=== PATIENT | male | born 1980 | race Caucasian/White ===

== ENCOUNTER 2016-10-01 15:59 | Emergency (ER) | payer OTHER ==
--- NOTE | 2016-10-01 17:15 | ED CLINICAL REPORT ---
Clinical Report - Physicians/Mid Levels [facility] [address] [place] [address] 10/01/2016 16:00 Patient: SPARKLE JOEL Time Seen: 16:11; initial patient contact, initial documentation, patient care assumed. Arrived- By private vehicle. Historian- patient and significant other. HISTORY OF PRESENT ILLNESS Chief Complaint: Injury to the right foot and great toe and right 2nd toe. The injury happened just prior to arrival. 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 Occurred at home. Patient is experiencing severe pain. Patient denies injury to the head or neck. No other injury. REVIEW OF SYSTEMS The patient sustained a laceration. He complains of pain on weight bearing. No swelling, tingling, weakness or numbness. All systems otherwise negative, except as recorded above. PAST HISTORY See nurses notes. SURGERY HX: Appendectomy. Back surgery. Discectomy; fusion at L5-S1. Tetanus immunization status is unknown. SOCIAL HISTORY Never smoker. Occasional alcohol use. No drug use. No recent travel. Is a local resident. He lives with spouse. FAMILY HISTORY No significant family medical history. ADDITIONAL NOTES The nursing notes have been reviewed with agreement regarding the chief complaint, HPI, ROS and patient medications and allergies. PHYSICAL EXAM Vital Signs: 10/01/2016 16:07 BP: 137/101. HR: 68. RR: 20. O2 saturation: 99%. Temp: 98.2 F. Pain level now: 9/10. Have been reviewed as abnormal. Hypertensive. Heart rate normal. Respiratory rate normal. Temperature normal. Oxygen saturation normal. Appearance: Alert. Oriented X3. No acute distress. Head: Head atraumatic. Eyes: Pupils equal, round and reactive to light. Eyes normal inspection. Respiratory: No respiratory distress. Skin: Skin intact. Skin warm and dry. Extremities: Foot injury present. Tip of right great toe: moderate tenderness small subungual hematoma present; (very small hematoma, approx 10% of nail). No erythema, swelling, laceration of tip of right great toe, puncture wound or foreign body. No right great toenail avulsion or toe tip amputation, exposed bone of right great toe or loss of the nail bed of right great toe. Tip of right second toe: mild tenderness and superficial laceration; (dried blood at base of cuticle, no active bleeding, no closure needed). No erythema, swelling, puncture wound or foreign body. No subungual hematoma of right second toe, right second toenail avulsion or toe tip amputation, exposed bone of right second toe or loss of the nail bed of right second toe. No ankle injury. Foot and ankle exam otherwise negative. Extremities otherwise negative. Neuro, Vascular and Tendons: Vascular status intact. Sensation intact. Motor intact. Tendon function intact. Gait: Abnormal gait. Gait not tested due to pain. Neuro: Oriented X 3. No motor deficit. No sensory deficit. Note: isolated injury to foot. LABS, X-RAYS, AND EKG X-Rays: Right foot. Rt Foot X-ray: Right toe(s) fracture. Fracture involving the distal phalanx of the first toe. Fracture involving the distal phalanx of the second toe. No open, angulated or displaced fracture of the first toe. No open, angulated or displaced fracture of the second toe. (and reviewed by Dr Hall IMPRESSION: 1. Fractures of the right first, second and third toes. Electronically Final signed by:Bolivar Harris MD 10/01/2016 5:42:57 PM). The X-rays were independently viewed by me and interpreted by the radiologist. PROGRESS AND PROCEDURES Course of Care: concerns voiced over possible microscopic fb, sock, shoes, grass, and infection risk, agreed to do abx 17:18 10/01/16. pt has lindsay for frequent narcs, last rx 09/28 for hydrocodone 7.5mg #60 and valium 2mg #30, see report for full details. Patient and spouse counseled in person regarding the patient's stable condition, test results and diagnosis. Differential Diagnosis: Other possible considerations: toe amputation, fx, lac, contusion, fb. Above considerations are based on history, physical exam and X-Ray data. Differential diagnosis was discussed with patient and patient's spouse. Disposition: Discharged home in good and improved condition. Condition: good and stable. CLINICAL IMPRESSION Closed nondisplaced distal phalanx fracture of the right 1st toe; distal phalanx fracture of the right 2nd toe. No angulated fracture of the phalanx. Single superficial laceration to the right 2nd toe.Treatment of laceration not delayed. No infection, foreign body present or right toenail injury. Subungual hematoma of the right great toe. No damage to the nail, foreign body present or laceration present. INSTRUCTIONS Apply ice for 20 minutes four times a day for two days. Mauro tape toes until released. Protect wound and keep wound area clean. Soak in warm soapy water twice daily. Apply bacitracin twice daily. Elevate affected areas above chest level for two days until better. Wear post-op shoe until better. Warnings: TETANUS: You were given a tetanus shot during your visit. Make a note for future reference. GENERAL WARNINGS: Return or contact your physician immediately if your condition worsens or changes unexpectedly, if not improving as expected, or if other problems arise. Specifically return if problem worsens. Prescription Medications: Zofran 4 mg: Take 1 orally every six hours as needed for nausea/vomiting. Dispense ten (10). No refills. Substitution is permissible. Cipro 500 mg: take 1 tab orally every 12 hours for 10 days. Dispense twenty (20). No refills. Substitution is permissible. Celoron 5 mg / 325 mg tablets: take 1 to 2 orally every 6 hours as needed for pain. Dispense fifteen (15). No refills. Substitution is permissible. Motrin 800 mg tablets: take 1 tablet orally every 8 hours as needed for pain. Dispense thirty (30). No refills. Substitution is permissible. Follow-up: Screening today revealed the patient's blood pressure to be in the hypertensive range. The patient should follow up with a primary care provider for blood pressure management. Understanding of the discharge instructions verbalized by patient. Follow-up with: Marquise Adams DPM, Podiatry, , [facility], [address] [place] [address], [address], [place] [address]; Sunny Oneal DPM, Podiatry, [phone], [address] [facility]. [address], [place], [address] Follow up in about two days even if well. Call for an appointment. Summary of care provided to patient and family. (Electronically signed by Mila Hobbs A.R.N.P. 10/01/2016 17:48) Addenda for SPARKLE JOEL VisitID: [id number] Date: 10/01/2016 10/01/2016 18:01 pharmacy called, verifying my rx of norco, because pt just got 30 day supply of pain meds, rx denied (Electronically signed by Mila HobbsN.P. - 10/01/2016 18:01)
--- NOTE | 2016-10-01 17:15 | ED CLINICAL REPORT ---
Clinical Report - Physicians/Mid Levels [facility] [address] [place] [address] 10/01/2016 16:00 Patient: SPARKLE JOEL Time Seen: 16:11; initial patient contact, initial documentation, patient care assumed. Arrived- By private vehicle. Historian- patient and significant other. HISTORY OF PRESENT ILLNESS Chief Complaint: Injury to the right foot and great toe and right 2nd toe. The injury happened just prior to arrival. 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 Occurred at home. Patient is experiencing severe pain. Patient denies injury to the head or neck. No other injury. REVIEW OF SYSTEMS The patient sustained a laceration. He complains of pain on weight bearing. No swelling, tingling, weakness or numbness. All systems otherwise negative, except as recorded above. PAST HISTORY See nurses notes. SURGERY HX: Appendectomy. Back surgery. Discectomy; fusion at L5-S1. Tetanus immunization status is unknown. SOCIAL HISTORY Never smoker. Occasional alcohol use. No drug use. No recent travel. Is a local resident. He lives with spouse. FAMILY HISTORY No significant family medical history. ADDITIONAL NOTES The nursing notes have been reviewed with agreement regarding the chief complaint, HPI, ROS and patient medications and allergies. PHYSICAL EXAM Vital Signs: 10/01/2016 16:07 BP: 137/101. HR: 68. RR: 20. O2 saturation: 99%. Temp: 98.2 F. Pain level now: 9/10. Have been reviewed as abnormal. Hypertensive. Heart rate normal. Respiratory rate normal. Temperature normal. Oxygen saturation normal. Appearance: Alert. Oriented X3. No acute distress. Head: Head atraumatic. Eyes: Pupils equal, round and reactive to light. Eyes normal inspection. Respiratory: No respiratory distress. Skin: Skin intact. Skin warm and dry. Extremities: Foot injury present. Tip of right great toe: moderate tenderness small subungual hematoma present; (very small hematoma, approx 10% of nail). No erythema, swelling, laceration of tip of right great toe, puncture wound or foreign body. No right great toenail avulsion or toe tip amputation, exposed bone of right great toe or loss of the nail bed of right great toe. Tip of right second toe: mild tenderness and superficial laceration; (dried blood at base of cuticle, no active bleeding, no closure needed). No erythema, swelling, puncture wound or foreign body. No subungual hematoma of right second toe, right second toenail avulsion or toe tip amputation, exposed bone of right second toe or loss of the nail bed of right second toe. No ankle injury. Foot and ankle exam otherwise negative. Extremities otherwise negative. Neuro, Vascular and Tendons: Vascular status intact. Sensation intact. Motor intact. Tendon function intact. Gait: Abnormal gait. Gait not tested due to pain. Neuro: Oriented X 3. No motor deficit. No sensory deficit. Note: isolated injury to foot. LABS, X-RAYS, AND EKG X-Rays: Right foot. Rt Foot X-ray: Right toe(s) fracture. Fracture involving the distal phalanx of the first toe. Fracture involving the distal phalanx of the second toe. No open, angulated or displaced fracture of the first toe. No open, angulated or displaced fracture of the second toe. (and reviewed by Dr Hall IMPRESSION: 1. Fractures of the right first, second and third toes. Electronically Final signed by:Bolivar Harris MD 10/01/2016 5:42:57 PM). The X-rays were independently viewed by me and interpreted by the radiologist. PROGRESS AND PROCEDURES Course of Care: concerns voiced over possible microscopic fb, sock, shoes, grass, and infection risk, agreed to do abx 17:18 10/01/16. pt has lindsay for frequent narcs, last rx 09/28 for hydrocodone 7.5mg #60 and valium 2mg #30, see report for full details. Patient and spouse counseled in person regarding the patient's stable condition, test results and diagnosis. Differential Diagnosis: Other possible considerations: toe amputation, fx, lac, contusion, fb. Above considerations are based on history, physical exam and X-Ray data. Differential diagnosis was discussed with patient and patient's spouse. Disposition: Discharged home in good and improved condition. Condition: good and stable. CLINICAL IMPRESSION Closed nondisplaced distal phalanx fracture of the right 1st toe; distal phalanx fracture of the right 2nd toe. No angulated fracture of the phalanx. Single superficial laceration to the right 2nd toe.Treatment of laceration not delayed. No infection, foreign body present or right toenail injury. Subungual hematoma of the right great toe. No damage to the nail, foreign body present or laceration present. INSTRUCTIONS Apply ice for 20 minutes four times a day for two days. Mauro tape toes until released. Protect wound and keep wound area clean. Soak in warm soapy water twice daily. Apply bacitracin twice daily. Elevate affected areas above chest level for two days until better. Wear post-op shoe until better. Warnings: TETANUS: You were given a tetanus shot during your visit. Make a note for future reference. GENERAL WARNINGS: Return or contact your physician immediately if your condition worsens or changes unexpectedly, if not improving as expected, or if other problems arise. Specifically return if problem worsens. Prescription Medications: Zofran 4 mg: Take 1 orally every six hours as needed for nausea/vomiting. Dispense ten (10). No refills. Substitution is permissible. Cipro 500 mg: take 1 tab orally every 12 hours for 10 days. Dispense twenty (20). No refills. Substitution is permissible. [place] 5 mg / 325 mg tablets: take 1 to 2 orally every 6 hours as needed for pain. Dispense fifteen (15). No refills. Substitution is permissible. Motrin 800 mg tablets: take 1 tablet orally every 8 hours as needed for pain. Dispense thirty (30). No refills. Substitution is permissible. Follow-up: Screening today revealed the patient's blood pressure to be in the hypertensive range. The patient should follow up with a primary care provider for blood pressure management. Understanding of the discharge instructions verbalized by patient. Follow-up with: Marquise Adams DPM, Podiatry, , [facility], [address] [place] [address], [address], [place] [address]; Sunny Oneal DPM, Podiatry, [phone], [address] [facility], [place], [address] Follow up in about two days even if well. Call for an appointment. Summary of care provided to patient and family. (Electronically signed by Mila Hobbs A.R.N.P. 10/01/2016 17:48) Addenda for SPARKLE JOEL VisitID: [id number] Date: 10/01/2016 10/01/2016 18:01 pharmacy called, verifying my rx of norco, because pt just got 30 day supply of pain meds, rx denied (Electronically signed by Mila HobbsN.P. - 10/01/2016 18:01)
--- NOTE | 2016-10-01 17:15 | ED ORDER SUMMARY ---
..... Patient: SPARKLE JOEL OrderSheet [facility] VisitID: [id number] [place] [address] 36y, M Registration Date/Time: 10/01/2016 ORDER SHEET Weight: 74.8 kg (stated) Allergies: No Known Drug Allergy GENERAL ORDERS: Foot 3V Right Urgent (16:06 10/01/2016 DDean R.N. per protocol) (Ack 16:10 TBergley) (16:57 DDean R.N.) Post-op Shoe (16:29 10/01/2016 HBivens A.R.N.P.) (16:56 DDean R.N.) Mauro Tape Toes (16:29 10/01/2016 HBivens A.R.N.P.) (16:57 DDean R.N.) MEDICATION ORDERS: Hydrocodone-APAP PO 5/325 mg (NOW, HIGH ALERT MEDICATION) (16:29 10/01/2016 HBivens A.R.N.P.) (Ack 16:49 DDean R.N.) (Cancelled: Other16:52 HBivens A.R.N.P.) Tdap IM 0.5 mL (NOW, per protocol) (16:37 10/01/2016 HBivens A.R.N.P.) (Ack 16:49 DDean R.N.) (16:52 DDean R.N.) Oxycodone-APAP PO 5/325 mg (HIGH ALERT MEDICATION, NOW) (16:52 10/01/2016 HBivens A.R.N.P.) (Ack 16:53 DDean R.N.) IV FLUIDS: ORDER SHEET NOTES: [Electronically signed by Mila Hobbs.R.N.P. (17:48 10/01/2016)] [Electronically signed by Ester Ramos R.N. (18:19 10/01/2016)] [Electronically locked/signed by Ester Ramos R.N. (18:19 10/01/2016)]
--- NOTE | 2016-10-01 17:15 | ED ORDER SUMMARY ---
..... Patient: SPARKLE JOEL OrderSheet [facility] VisitID: [id number] [place] [address] 36y, M Registration Date/Time: 10/01/2016 ORDER SHEET Weight: 74.8 kg (stated) Allergies: No Known Drug Allergy GENERAL ORDERS: Foot 3V Right Urgent (16:06 10/01/2016 DDean R.N. per protocol) (Ack 16:10 TBergley) (16:57 DDean R.N.) Post-op Shoe (16:29 10/01/2016 HBivens A.R.N.P.) (16:56 DDean R.N.) Mauro Tape Toes (16:29 10/01/2016 HBivens A.R.N.P.) (16:57 DDean R.N.) MEDICATION ORDERS: Hydrocodone-APAP PO 5/325 mg (NOW, HIGH ALERT MEDICATION) (16:29 10/01/2016 HBivens A.R.N.P.) (Ack 16:49 DDean R.N.) (Cancelled: Other16:52 HBivens A.R.N.P.) Tdap IM 0.5 mL (NOW, per protocol) (16:37 10/01/2016 HBivens A.R.N.P.) (Ack 16:49 DDean R.N.) (16:52 DDean R.N.) Oxycodone-APAP PO 5/325 mg (HIGH ALERT MEDICATION, NOW) (16:52 10/01/2016 HBivens A.R.N.P.) (Ack 16:53 DDean R.N.) IV FLUIDS: ORDER SHEET NOTES: [Electronically signed by Mila Hobbs.R.N.P. (17:48 10/01/2016)] [Electronically signed by Ester Ramos R.N. (18:19 10/01/2016)] [Electronically locked/signed by Ester Ramos R.N. (18:19 10/01/2016)]
--- NOTE | 2016-10-01 17:15 | ED NURSING NOTES ---
Clinical Report - Nurses [facility] [address] [place] [address] 10/01/2016 16:00 Patient: SPARKLE JOEL TRIAGE Triage time 1610. Acuity: LEVEL 3. 16:10. ( last ate 1200- sandwich, last liquids water- 2 oz water at 1600). --16:12 Ester Ramos R.N. 16:07 10/01/16. BP: 137/101. HR: 68. RR: 20. O2 saturation: 99%. Temp: 98.2 F. Pain level now: 02/26. --16:12 Ester Ramos R.N. Weight: 74.8 kg stated. Height/Length: 67 inches Per Patient. BMI: 25.9. --16:09 Ester Ramos R.N. Medications Hydrocodone-Acetaminophen Oral 5 mg, daily (every 2nd or 3rd day due to back pain- had surgery in march 2016). --16:08 Ester Ramos R.N. Had a vicodin at 1545 . --16:18 Ester Ramos R.N. Allergies No Known Drug Allergy. --16:08 Ester Ramos R.N. History Arrived by private vehicle. Historian: patient. Accompanied by spouse. Primary physician (shannan/ nelson). 16:10 10/01/16. This occurred just prior to arrival. 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 He has had trouble walking. SURGERY HX: Appendectomy. Back surgery. Discectomy; fusion at L5-S1. SOCIAL HX: Never smoker. Occasional alcohol use. No drug use. --16:12 Ester Ramos R.N. Interventions ID band on patient. To treatment room. --16:12 Ester Ramos R.N. PHYSICAL ASSESSMENT 16:10. Ambulatory to room. Patient gowned. GENERAL / NEURO / PSYCH: Oriented X 4. Does not appear in pain. EXTREMITIES: Limited ROM present. Capillary refill is less than 2 seconds in the extremities. Extremity pulses are within normal limits. Pain with weight bearing. Limping gait. Right foot, plantar aspect: tenderness and swelling. Right big toe: tenderness and swelling. Right second toe: tenderness, swelling, ecchymosis and abrasion. SKIN: Skin is warm and dry. --16:14 Ester Ramos R.N. NURSING PROGRESS NOTES 16:10. Cold pack applied. Reassurance given. Patient identifiers checked. Call light placed in reach. Side rails up. Bed placed in lowest position. Patient ready for evaluation- chart flagged. --16:13 Ester Ramos R.N. 16:17 10/01/16. ( port x-ray here to do foot films). --16:17 Ester Ramos R.N. 16:52 10/01/2016 TDAP IM. (Lot#: [id number], expiration date: 03/26/2018). Given in the left deltoid. --16:52 Ester Ramos R.N. 16:52 10/01/2016 Oxycodone-APAP (Oxycodone-Acetaminophen) PO 5/325 mg Tablets 1 tab given. Allergies verified and confirmed 5 rights. --16:57 Ester Ramos R.N. 17:15. Applied clean dressing consisting of Band-Aid, following the application of antibiotic ointment (kimo tape done to 1st and 2nd great toe by rail technician, then post op shoe applied by Meredith Merritt mending carrier). --18:13 Ester Ramos R.N. DISPOSITION / DISCHARGE 17:25. Condition at departure: improved and stable. No learning barriers present. Discharge instructions provided and reviewed with the patient and spouse. Reviewed medication(s) (zofran, cipro, vicodin, motrin). Reviewed wound care instructions (kimo tape, post-op boot). Patient and spouse verbalized understanding. Written instructions provided in Maori. The patient was discharged home and accompanied by spouse. He left the Emergency Department in a wheelchair and via private vehicle. Spouse driving. --18:11 Ester Ramos R.N. 17:25 10/01/16. BP: 128/82. HR: 64. RR: 18. O2 saturation: 100%. Temp: deferred. Pain level now: 02/26. --18:11 Ester Ramos R.N. Locked/Released at 10/01/2016 18:19 by Ester Ramos R.N.
--- NOTE | 2016-10-01 17:15 | ED NURSING NOTES ---
Clinical Report - Nurses [facility] [address] [place] [address] 10/01/2016 16:00 Patient: SPARKLE JOEL TRIAGE Triage time 1610. Acuity: LEVEL 3. 16:10. ( last ate 1200- sandwich, last liquids water- 2 oz water at 1600). --16:12 Ester Ramos R.N. 16:07 10/01/16. BP: 137/101. HR: 68. RR: 20. O2 saturation: 99%. Temp: 98.2 F. Pain level now: 02/26. --16:12 Ester Ramos R.N. Weight: 74.8 kg stated. Height/Length: 67 inches Per Patient. BMI: 25.9. --16:09 Ester Ramos R.N. Medications Hydrocodone-Acetaminophen Oral 5 mg, daily (every 2nd or 3rd day due to back pain- had surgery in march 2016). --16:08 Ester Ramos R.N. Had a vicodin at 1545 . --16:18 Ester Ramos R.N. Allergies No Known Drug Allergy. --16:08 Ester Ramos R.N. History Arrived by private vehicle. Historian: patient. Accompanied by spouse. Primary physician (shannan/ nelson). 16:10 10/01/16. This occurred just prior to arrival. 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 He has had trouble walking. SURGERY HX: Appendectomy. Back surgery. Discectomy; fusion at L5-S1. SOCIAL HX: Never smoker. Occasional alcohol use. No drug use. --16:12 Ester Ramos R.N. Interventions ID band on patient. To treatment room. --16:12 Ester Ramos R.N. PHYSICAL ASSESSMENT 16:10. Ambulatory to room. Patient gowned. GENERAL / NEURO / PSYCH: Oriented X 4. Does not appear in pain. EXTREMITIES: Limited ROM present. Capillary refill is less than 2 seconds in the extremities. Extremity pulses are within normal limits. Pain with weight bearing. Limping gait. Right foot, plantar aspect: tenderness and swelling. Right big toe: tenderness and swelling. Right second toe: tenderness, swelling, ecchymosis and abrasion. SKIN: Skin is warm and dry. --16:14 Ester Ramos R.N. NURSING PROGRESS NOTES 16:10. Cold pack applied. Reassurance given. Patient identifiers checked. Call light placed in reach. Side rails up. Bed placed in lowest position. Patient ready for evaluation- chart flagged. --16:13 Ester Ramos R.N. 16:17 10/01/16. ( port x-ray here to do foot films). --16:17 Ester Ramos R.N. 16:52 10/01/2016 TDAP IM. (Lot#: [id number], expiration date: 03/26/2018). Given in the left deltoid. --16:52 Ester Ramos R.N. 16:52 10/01/2016 Oxycodone-APAP (Oxycodone-Acetaminophen) PO 5/325 mg Tablets 1 tab given. Allergies verified and confirmed 5 rights. --16:57 Ester Ramos R.N. 17:15. Applied clean dressing consisting of Band-Aid, following the application of antibiotic ointment (kimo tape done to 1st and 2nd great toe by lawn and garden technician, then post op shoe applied by Meredith Merritt health care recruiter). --18:13 Ester Ramos R.N. DISPOSITION / DISCHARGE 17:25. Condition at departure: improved and stable. No learning barriers present. Discharge instructions provided and reviewed with the patient and spouse. Reviewed medication(s) (zofran, cipro, vicodin, motrin). Reviewed wound care instructions (kimo tape, post-op boot). Patient and spouse verbalized understanding. Written instructions provided in Sinhala. The patient was discharged home and accompanied by spouse. He left the Emergency Department in a wheelchair and via private vehicle. Spouse driving. --18:11 Ester Ramos R.N. 17:25 10/01/16. BP: 128/82. HR: 64. RR: 18. O2 saturation: 100%. Temp: deferred. Pain level now: 02/26. --18:11 Ester Ramos R.N. Locked/Released at 10/01/2016 18:19 by Ester Ramos R.N.
--- NOTE | 2016-10-01 17:43 | DIAGNOSTIC IMAGING REPORT ---
PROCEDURE: XR FOOT 3 VIEWS - RIGHT INDICATION: TRAUMA/INJURY TECHNIQUE: Three views. COMPARISON: None. FINDINGS: Minimally displaced intra-articular fracture of the right great toe distal phalanx base laterally and nondisplaced fracture of the second toe distal phalanx. There is also a nondisplaced transverse fracture at the base of the third proximal phalanx. No radiopaque foreign bodies. IMPRESSION: 1. Fractures of the right first, second and third toes.
--- NOTE | 2016-10-01 18:19 | ED MAR SUMMARY ---
..... Medication Administration Record [facility] [address] [place] [address] Patient: SPARKLE JOEL Visit ID: [id number] 36y, M Weight: 74.8 kg Height/Length: 67 in BMI: 25.9 ALLERGIES: No Known Drug Allergy Given 16:10/01/2016 Ester Ramos RChaddN. Medication Administered: TDAP [IM], Dose: IM. Medication Ordered: Tdap IM 0.5 mL (NOW, per protocol). Given 16:10/01/2016 Ester Ramos, R.N. Medication Administered: OXYCODONE-APAP [PO] (OXYCODONE-ACETAMINOPHEN), Dose: 1 tab 5/325 mg Tablets PO. Medication Ordered: Oxycodone-APAP PO 5/325 mg (HIGH ALERT MEDICATION, NOW).
--- NOTE | 2016-10-01 18:19 | ED MED RECONCILIATION SUMMARY ---
Patient: SPARKLE JOEL Medication Reconciliation Report [facility] VisitID: [id number] [place] [address] 36y, M Registration Date/Time: 10/01/2016 Weight: 74.8 kg Height/Length: 67 in. BMI: 25.9 ALLERGIES: No Known Drug Allergy The patient's Home Medications are listed below: THE FOLLOWING MEDICATIONS NEED TO BE RECONCILED: Had a vicodin at 1545 Hydrocodone-Acetaminophen Oral 5 mg, daily, every 2nd or 3rd day due to back pain- had surgery in march 2016 The source(s) of the original Home Medication information: Not obtained. The following Medications were given to the patient in the Emergency Department: TDAP [IM] IM, administered: 10/01/2016 4:52:00 PM Oxycodone-APAP [PO] PO 1 tab, administered: 10/01/2016 4:52:00 PM The following Medications were prescribed to the patient: Zofran 4 mg: Take 1 orally every six hours as needed for nausea/vomiting. Dispense ten (10). No refills. Substitution is permissible. -- Mila Hobbs, A.R.N.P. Cipro 500 mg: take 1 tab orally every 12 hours for 10 days. Dispense twenty (20). No refills. Substitution is permissible. -- Mila Hobbs, A.R.N.P. Bassett 5 mg / 325 mg tablets: take 1 to 2 orally every 6 hours as needed for pain. Dispense fifteen (15). No refills. Substitution is permissible. -- Mila Hobbs, A.R.N.P. Motrin 800 mg tablets: take 1 tablet orally every 8 hours as needed for pain. Dispense thirty (30). No refills. Substitution is permissible. -- Mila Hobbs, A.R.N.P.
--- NOTE | 2016-10-01 18:19 | ED DISCHARGE INSTRUCTIONS ---
Patient: SPARKLE JOEL General Instructions [facility] VisitID: [id number] [place] [address] 36y, M Registration Date/Time: 10/01/2016 Closed nondisplaced distal phalanx fracture of the right 1st toe; distal phalanx fracture of the right 2nd toe. No angulated fracture of the phalanx. Single superficial laceration to the right 2nd toe.Treatment of laceration not delayed. No infection, foreign body present or right toenail injury. Subungual hematoma of the right great toe. No damage to the nail, foreign body present or laceration present. INSTRUCTIONS Apply ice for 20 minutes four times a day for two days. Kimo tape toes until released. Protect wound and keep wound area clean. Soak in warm soapy water twice daily. Apply bacitracin twice daily. Elevate affected areas above chest level for two days until better. Wear post-op shoe until better. Warnings: TETANUS: You were given a tetanus shot during your visit. Make a note for future reference. GENERAL WARNINGS: Return or contact your physician immediately if your condition worsens or changes unexpectedly, if not improving as expected, or if other problems arise. Specifically return if problem worsens. Prescription Medications: Zofran 4 mg: Take 1 orally every six hours as needed for nausea/vomiting. Dispense ten (10). No refills. Substitution is permissible. Cipro 500 mg: take 1 tab orally every 12 hours for 10 days. Dispense twenty (20). No refills. Substitution is permissible. Drumore 5 mg / 325 mg tablets: take 1 to 2 orally every 6 hours as needed for pain. Dispense fifteen (15). No refills. Substitution is permissible. Motrin 800 mg tablets: take 1 tablet orally every 8 hours as needed for pain. Dispense thirty (30). No refills. Substitution is permissible. Follow-up: Screening today revealed the patient's blood pressure to be in the hypertensive range. The patient should follow up with a primary care provider for blood pressure management. Understanding of the discharge instructions verbalized by patient. Follow-up with: Marquise Adams DPM, Podiatry, , [facility], [address] [place] [address], [address], [place], [address]; Sunny Kimmy [facility], Podiatry, , [address], [place], [address] Follow up in about two days even if well. Call for an appointment. Summary of care provided to patient and family. ADDITIONAL INFORMATION Laceration (All Closures) Alaceration is a cut through the skin. This will usually require stitches (sutures) or cecilia if it is deep. Minor cuts may be treated with a surgical tape closure orskin glue. Home care The following guidelines will help you care for your laceration at home: Extremity, face, or trunk wounds Keep the wound clean and dry. If a bandage was applied and it becomes wet or dirty, replace it. Otherwise, leave it in place for the first 24 hours. If stitches or cecilia were used, clean the wound daily. After removing the bandage, wash the area with soap and water. Use a wet cotton swab to loosen and remove any blood or crust that forms. The doctor may prescribe an antibiotic cream or ointment to prevent infection. Do not stop taking this medication until you have finished the prescribed course or the doctor tells you to stop. The doctor may also prescribe medications for pain. Follow the doctors instructions for taking these medications. You may remove the bandage to shower as usual after the first 24 hours, but do not soak the area in water (no swimming) until the stitches or cecilia are removed. If surgical tape was used, keep the area clean and dry. If it becomes wet, blot it dry with a towel. If skin glue was used, do not scratch, rub, or pick at the adhesive film. Do not place tape directly over the film. Do not apply liquid, ointment, or creams to the wound while the film is in place. Do not clean the wound with peroxide and do not apply ointments. Avoid activities that cause heavy sweating until the film has fallen off. Protect the wound from prolonged exposure to sunlight or tanning lamps. You may shower as usual but do not soak the wound in water (no baths or swimming). The film will fall off by itself in 510 days. Scalp wounds During the first two days, you may carefully rinse your hair in the shower to remove blood, glass or dirt particles. After two days, you may shower and shampoo your hair normally. Do not soak your scalp in the tub or go swimming until the stitches or cecilia have been removed. Talk with your doctor before applying any antibiotic ointment to the wound. Mouth wounds Eat soft foods to reduce pain. If the cut is inside of your mouth, clean by rinsing after each meal and at bedtime with a mixture of equal parts water and hydrogen peroxide (do not swallow!). Or, you can use a cotton swab to directly apply hydrogen peroxide onto the cut. Mouth wounds can be painful when eating. You may use an [id number] local numbing solution for pain relief. If this is not available, you may use any numbing solution for teething babies. You may apply this directly to the sores with a cotton-tip swab or with your finger. Follow-up care Follow up with your health care provider. Most skin wounds heal within ten days. Mouth and facial wounds heal within five days. However, even with proper treatment, a wound infection may sometimes occur. Therefore, you should check the wound daily for signs of infection listed below. Stitches should be removed from the face within five days; stitches and cecilia should be removed from other parts of the body within 714 days. If dissolving stitches were used in the mouth, these will fall out or dissolve without the need for removal. If tape closures were used, remove them yourself if they have not fallen off after 7 days. Ifskin glue was used, the film will fall off by itself in 510 days. When to seek medical care Get prompt medical attention if any of these occur: Bleeding not controlled by direct pressure Signs of infection, including increasing pain in the wound, increasing wound redness or swelling, or pus coming from the wound Fever of 100.4F (38C) or higher, or as directed by your health care provider Stitches or cecilia come apart or fall out or surgical tape falls off before 7 days Wound edges re-open Fracture:Toe [Closed] You have a fracture of your toe (broken toe). This causes local pain, swelling and bruising. This injury takes about four weeks to heal. Toe injuries are often treated by taping the injured toe to the next one ("kimo taping"). This protects the injured toe and holds it in position. If the TOENAIL has been severely injured, it may fall off in 1-2 weeks. It takes up to 12 months for a new toenail to grow back. Home Care: 1) You may be given a cast shoe to wear to prevent movement in your toe. If not, you can use a sandal or any shoe that does not put pressure on the injured toe until the swelling and pain go away. If using a sandal, be careful not to strike your foot against anything, since another injury could make the fracture worse. If you were given crutches, do not put full weight on the injured foot until you can do so without pain. 2) Keep your foot elevated to reduce pain and swelling. When sleeping, place a pillow under the injured leg. When sitting, support the injured leg so it is level with your waist. This is very important during the first 48 hours. 3) Apply an ice pack (ice cubes in a plastic bag, wrapped in a towel) over the injured area for 20 minutes every 1-2 hours the first day. Continue with ice packs 3-4 times a day for the next two days, then as needed for the relief of pain and swelling. 4) If kimo tape was applied and it becomes wet or dirty, change it. You may replace it with paper, plastic or cloth tape. Cloth tape and paper tapes must be kept dry. 5) You may use acetaminophen (Tylenol) or ibuprofen (Motrin, Advil) to control pain, unless another pain medicine was prescribed. [ NOTE : If you have chronic liver or kidney disease or ever had a stomach ulcer or GI bleeding, talk with your doctor before using these medicines.] 6) You may return to sports or physical education activities after 4 weeks or when you can run without pain. Follow Up With Your Doctor In One Week, Or As Advised By Our Staff, To Be Sure The Bone Is Healing Properly. [NOTE: Any X-rays taken will be reviewed by a radiologist. You will be notified of any new findings that may affect your care.] Get Prompt Medical Attention If Any Of The Following Occur: Increasing pain or swelling Toe becomes cold, blue, numb or tingly Signs of infection: fever, redness, warmth, swelling or drainage from the wound Fever of 100.4F (38C) or higher, or as directed by your healthcare provider Subungual Hematoma A subungual hematoma is blood under the nail. It occurs when the finger or toe has been hit or crushed. It causes the nail to look blue. Sometimes, the bone under the nail is also fractured and this will take longer to heal. If the bruise is small and not too painful, it will heal without treatment. If the bruise is large and painful, the blood may need to be drained. If a large area of the nail is damaged, it may be removed by your doctor. If the nail was not removed, it may separate and fall off in the next two weeks. In almost all cases, the nail will grow back from under the cuticle. This takes a few weeks to start and is complete in about 4-6 months for a fingernail and 12 months for a toenail. If the nail bed was damaged, the nail may grow back with a rough or irregular shape. Sometimes the nail may not regrow at all. Home Care: Apply an ice pack (ice cubes in a plastic bag, wrapped in a thin towel) and apply for 20 minutes every 1-2 hours the first day. Continue this 3-4 times a day until the pain and swelling goes away. If the nail was drained: Keep the nail covered with a clean Band-Aid for the next two days. There may be some oozing of blood during that time, so change the Band-Aid as needed. Soak the finger or toe once a day under warm running water. Clean any crust away with a cotton tipped applicator (Q-tip) soaked in soapy water. If the nail was removed: The nail bed (tissue under the nail) is moist, soft and sensitive. This needs to be protected from injury for the first 7-10 days until it dries out and becomes hard. Keep it covered with a dressing or Band-Aid until that time. Bandages tend to stick to a newly exposed nail bed and be hard to remove if left in place more than 24 hours. Therefore, unless you were told otherwise, change dressings every 24 hours. If necessary, soak the dressing off while holding your finger or toe under warm running water. If an x-ray showed a fracture, you should protect the finger or toe for 3-4 weeks while it is healing. If you were prescribed antibiotics to prevent infection, take them as directed until they are all gone. You may use acetaminophen (Tylenol) or ibuprofen (Motrin, Advil) to control pain, unless another medicine was prescribed. [NOTE: If you have chronic liver or kidney disease or ever had a stomach ulcer or GI bleeding, talk with your doctor before using these medicines.] Do not use ibuprofen in children under six months of age. Follow Up With Your Doctor Or This Facility As Advised. If The Nail Was Drained, There Is A Small Risk Of Infection. Watch Carefully For The Signs Listed Below. Get Prompt Medical Attention If Any Of The Following Occur: Increasing redness around the nail Increasing local pain or swelling Pus draining from the nail Fever of 100.4F (38C) or higher, or as directed by your healthcare provider Diphtheria Toxoid Adsorbed, Pertussis Vaccine, Acellular (Adsorbed), Tetanus Toxoid, Adsorbed Suspension for injection What is this medicine? DIPHTHERIA and TETANUS TOXOIDS; PERTUSSIS VACCINE (dif THEER ee uh and TET n us TOK soids; per TUS iss tessk SEEN) is used to prevent diphtheria, tetanus, and pertussis infections. How should I use this medicine? This vaccine is for injection into a muscle. It is given by a health career and technology education teacher. A copy of Vaccine Information Statements will be given before each vaccination. Read this sheet carefully each time. The sheet may change frequently. Talk to your wet room supervisor regarding the use of this vaccine in children. While the DTP vaccine may be given to children ages 6 weeks to 7 years and the Tdap vaccine may be given to children at least 10 years old, precautions do apply. What side effects may I notice from receiving this medicine? Side effects that you should report to your doctor or health career and technology education teacher as soon as possible: allergic reactions like skin rash, itching or hives, swelling of the face, lips, or tongue breathing problems fever of 103 degrees F or more flu-like symptoms inconsolable crying infection pain, tingling, numbness in the hands or feet seizures swelling of arm or leg that was injected unusually weak or tired Side effects that usually do not require immediate medical attention (report these side effects to your doctor or health career and technology education teacher if they continue or are bothersome): fussy, irritable loss of appetite fever of 102 degrees F or less pain, tenderness, redness, swelling, or a 'knot' at site where injected vomiting What may interact with this medicine? immune globulin medicines that suppress your immune function like adalimumab, anakinra, infliximab medicines to treat cancer medicines that treat or prevent blood clots like warfarin, enoxaparin, and dalteparin steroid medicines like prednisone or cortisone What if I miss a dose? It is important not to miss your dose. Call your doctor or health career and technology education teacher if you are unable to keep an appointment. Where should I keep my medicine? This drug is given in a hospital or clinic and will not be stored at home. What should I tell my health care provider before I take this medicine? They need to know if you have any of these conditions: blood disorders like hemophilia fever or infection immune system problems neurologic disease seizures an unusual or allergic reaction to vaccines, thimerosal, latex, other medicines, foods, dyes, or preservatives or trying to get breast-feeding What should I watch for while using this medicine? See your health care provider for all shots of this vaccine as directed. To have protection from infection, you must have 3 shots of this vaccine plus boosters as needed. Tell your doctor right away if you have any serious or unusual side effects after getting this vaccine. Ondansetron Oral disintegrating tablet What is this medicine? ONDANSETRON (on DANIELLE se radha) is used to treat nausea and vomiting caused by chemotherapy. It is also used to prevent or treat nausea and vomiting after surgery. How should I use this medicine? These tablets are made to dissolve in the mouth. Do not try to push the tablet through the foil backing. With dry hands, peel away the foil backing and gently remove the tablet. Place the tablet in the mouth and allow it to dissolve, then swallow. While you may take these tablets with water, it is not necessary to do so. Talk to your wet room supervisor regarding the use of this medicine in children. Special care may be needed. What side effects may I notice from receiving this medicine? Side effects that you should report to your doctor or health career and technology education teacher as soon as possible: allergic reactions like skin rash, itching or hives, swelling of the face, lips, or tongue breathing problems dizziness fast or irregular heartbeat feeling faint or lightheaded, falls fever and chills swelling of the hands and feet tightness in the chest Side effects that usually do not require medical attention (report to your doctor or health career and technology education teacher if they continue or are bothersome): constipation or diarrhea headache What may interact with this medicine? Do not take this medicine with any of the following medications: -apomorphine -cisapride -dofetilide -dronedarone -pimozide -thioridazine -ziprasidone This medicine may also interact with the following medications: -carbamazepine -phenytoin -rifampicin -tramadol -other medicines that prolong the QT interval (cause an abnormal heart rhythm) What if I miss a dose? If you miss a dose, take it as soon as you can. If it is almost time for your next dose, take only that dose. Do not take double or extra doses. Where should I keep my medicine? Keep out of the reach of children. Store between 2 and 30 degrees C (36 and 86 degrees F). Throw away any unused medicine after the expiration date. What should I tell my health care provider before I take this medicine? They need to know if you have any of these conditions: heart disease history of irregular heartbeat liver disease low levels of magnesium or potassium in the blood an unusual or allergic reaction to ondansetron, granisetron, other medicines, foods, dyes, or preservatives or trying to get breast-feeding What should I watch for while using this medicine? Check with your doctor or health career and technology education teacher as soon as you can if you have any sign of an allergic reaction. Ciprofloxacin Hydrochloride Oral tablet What is this medicine? CIPROFLOXACIN (sip eden FLOX a sin) is a quinolone antibiotic. It is used to treat certain kinds of bacterial infections. It will not work for colds, flu, or other viral infections. How should I use this medicine? Take this medicine by mouth with a glass of water. Follow the directions on the prescription label. Take your medicine at regular intervals. Do not take your medicine more often than directed. Take all of your medicine as directed even if you think your are better. Do not skip doses or stop your medicine early. You can take this medicine with food or on an empty stomach. It can be taken with a meal that contains dairy or calcium, but do not take it alone with a dairy product, like milk or yogurt or calcium-fortified juice. A special MedGuide will be given to you by the pharmacist with each prescription and refill. Be sure to read this information carefully each time. Talk to your wet room supervisor regarding the use of this medicine in children. Special care may be needed. What side effects may I notice from receiving this medicine? Side effects that you should report to your doctor or health career and technology education teacher as soon as possible: - allergic reactions like skin rash, itching or hives, swelling of the face, lips, or tongue - breathing problems - confusion, nightmares or hallucinations - feeling faint or lightheaded, falls - irregular heartbeat - joint, muscle or tendon pain or swelling - pain or trouble passing urine -persistent headache with or without blurred vision - redness, blistering, peeling or loosening of the skin, including inside the mouth - seizure - unusual pain, numbness, tingling, or weakness Side effects that usually do not require medical attention (report to your doctor or health career and technology education teacher if they continue or are bothersome): - diarrhea - nausea or stomach upset - white patches or sores in the mouth What may interact with this medicine? Do not take this medicine with any of the following medications: cisapride droperidol terfenadine tizanidine This medicine may also interact with the following medications: antacids caffeine cyclosporin didanosine (ddI) buffered tablets or powder medicines for diabetes medicines for inflammation like ibuprofen, naproxen methotrexate multivitamins omeprazole phenytoin probenecid sucralfate theophylline warfarin What if I miss a dose? If you miss a dose, take it as soon as you can. If it is almost time for your next dose, take only that dose. Do not take double or extra doses. Where should I keep my medicine? Keep out of the reach of children. Store at room temperature below 30 degrees C (86 degrees F). Keep container tightly closed. Throw away any unused medicine after the expiration date. What should I tell my health care provider before I take this medicine? They need to know if you have any of these conditions: -bone problems -cerebral disease -joint problems -irregular heartbeat -kidney disease -liver disease -myasthenia gravis -seizure disorder -tendon problems -an unusual or allergic reaction to ciprofloxacin, other antibiotics or medicines, foods, dyes, or preservatives - or trying to get -breast-feeding What should I watch for while using this medicine? Tell your doctor or health career and technology education teacher if your symptoms do not improve. Do not treat diarrhea with over the counter products. Contact your doctor if you have diarrhea that lasts more than 2 days or if it is severe and watery. You may get drowsy or dizzy. Do not drive, use machinery, or do anything that needs mental alertness until you know how this medicine affects you. Do not stand or sit up quickly, especially if you are an older patient. This reduces the risk of dizzy or fainting spells. This medicine can make you more sensitive to the sun. Keep out of the sun. If you cannot avoid being in the sun, wear protective clothing and use sunscreen. Do not use sun lamps or tanning beds/booths. Avoid antacids, aluminum, calcium, iron, magnesium, and zinc products for 6 hours before and 2 hours after taking a dose of this medicine. Hydrocodone Bitartrate, Acetaminophen Oral tablet What is this medicine? ACETAMINOPHEN; HYDROCODONE (a set a EVERETT hank fen; flip droe KOE done) is a pain reliever. It is used to treat mild to moderate pain. How should I use this medicine? Take this medicine by mouth. Swallow it with a full glass of water. Follow the directions on the prescription label. If the medicine upsets your stomach, take the medicine with food or milk. Do not take more than you are told to take. Talk to your wet room supervisor regarding the use of this medicine in children. This medicine is not approved for use in children. What side effects may I notice from receiving this medicine? Side effects that you should report to your doctor or health career and technology education teacher as soon as possible: allergic reactions like skin rash, itching or hives, swelling of the face, lips, or tongue breathing problems confusion feeling faint or lightheaded, falls stomach pain yellowing of the eyes or skin Side effects that usually do not require medical attention (report to your doctor or health career and technology education teacher if they continue or are bothersome): nausea, vomiting stomach upset What may interact with this medicine? alcohol antihistamines isoniazid medicines for depression, anxiety, or psychotic disturbances medicines for sleep muscle relaxants naltrexone narcotic medicines (opiates) for pain phenobarbital ritonavir tramadol What if I miss a dose? If you miss a dose, take it as soon as you can. If it is almost time for your next dose, take only that dose. Do not take double or extra doses. Where should I keep my medicine? Keep out of the reach of children. This medicine can be abused. Keep your medicine in a safe place to protect it from theft. Do not share this medicine with anyone. Selling or giving away this medicine is dangerous and against the law. Store at room temperature between 15 and 30 degrees C (59 and 86 degrees F). Protect from light. Keep container tightly closed. Throw away any unused medicine after the expiration date. Discard unused medicine and used packaging carefully. Pets and children can be harmed if they find used or lost packages. What should I tell my health care provider before I take this medicine? They need to know if you have any of these conditions: brain tumor Crohn's disease, inflammatory bowel disease, or ulcerative colitis drink more than 3 alcohol-containing drinks per day drug abuse or addiction head injury heart or circulation problems kidney disease or problems going to the bathroom liver disease lung disease, asthma, or breathing problems an unusual or allergic reaction to acetaminophen, hydrocodone, other opioid analgesics, other medicines, foods, dyes, or preservatives or trying to get breast-feeding What should I watch for while using this medicine? Tell your doctor or health career and technology education teacher if your pain does not go away, if it gets worse, or if you have new or a different type of pain. You may develop tolerance to the medicine. Tolerance means that you will need a higher dose of the medicine for pain relief. Tolerance is normal and is expected if you take the medicine for a long time. Do not suddenly stop taking your medicine because you may develop a severe reaction. Your body becomes used to the medicine. This does NOT mean you are addicted. Addiction is a behavior related to getting and using a drug for a non-medical reason. If you have pain, you have a medical reason to take pain medicine. Your doctor will tell you how much medicine to take. If your doctor wants you to stop the medicine, the dose will be slowly lowered over time to avoid any side effects. You may get drowsy or dizzy when you first start taking the medicine or change doses. Do not drive, use machinery, or do anything that may be dangerous until you know how the medicine affects you. Stand or sit up slowly. There are different types of narcotic medicines (opiates) for pain. If you take more than one type at the same time, you may have more side effects. Give your health care provider a list of all medicines you use. Your doctor will tell you how much medicine to take. Do not take more medicine than directed. Call emergency for help if you have problems breathing. The medicine will cause constipation. Try to have a bowel movement at least every 2 to 3 days. If you do not have a bowel movement for 3 days, call your doctor or health career and technology education teacher. Too much acetaminophen can be very dangerous. Do not take Tylenol (acetaminophen) or medicines that contain acetaminophen with this medicine. Many non-prescription medicines contain acetaminophen. Always read the labels carefully. Ibuprofen Oral tablet What is this medicine? IBUPROFEN (eye BYOO proe fen) is a non-steroidal anti-inflammatory drug (NSAID). It is used for dental pain, fever, headaches or migraines, osteoarthritis, rheumatoid arthritis, or painful monthly periods. It can also relieve minor aches and pains caused by a cold, flu, or sore throat. How should I use this medicine? Take this medicine by mouth with a glass of water. Follow the directions on the prescription label. Take this medicine with food if your stomach gets upset. Try to not lie down for at least 10 minutes after you take the medicine. Take your medicine at regular intervals. Do not take your medicine more often than directed. A special MedGuide will be given to you by the pharmacist with each prescription and refill. Be sure to read this information carefully each time. Talk to your wet room supervisor regarding the use of this medicine in children. Special care may be needed. What side effects may I notice from receiving this medicine? Side effects that you should report to your doctor or health career and technology education teacher as soon as possible: allergic reactions like skin rash, itching or hives, swelling of the face, lips, or tongue black or bloody stools, blood in the urine or in vomit breathing problems changes in vision chest pain general ill feeling or flu-like symptoms nausea or vomiting redness, blistering, peeling or loosening of the skin, including inside the mouth slurred speech or weakness on one side of the body stomach pain unexplained weight gain or swelling unusually weak or tired yellowing of eyes or skin Side effects that usually do not require medical attention (report to your doctor or health career and technology education teacher if they continue or are bothersome): constipation or diarrhea dizziness gas or heartburn stomach upset What may interact with this medicine? Do not take this medicine with any of the following medications: cidofovir ketorolac methotrexate pemetrexed This medicine may also interact with the following medications: alcohol aspirin diuretics lithium other drugs for inflammation like prednisone warfarin What if I miss a dose? If you miss a dose, take it as soon as you can. If it is almost time for your next dose, take only that dose. Do not take double or extra doses. Where should I keep my medicine? Keep out of the reach of children. Store at room temperature between 15 and 30 degrees C (59 and 86 degrees F). Keep container tightly closed. Throw away any unused medicine after the expiration date. What should I tell my health care provider before I take this medicine? They need to know if you have any of these conditions: asthma cigarette smoker drink more than 3 alcohol containing drinks a day heart disease or circulation problems such as heart failure or leg edema (fluid retention) high blood pressure kidney disease liver disease stomach bleeding or ulcers an unusual or allergic reaction to ibuprofen, aspirin, other NSAIDS, other medicines, foods, dyes, or preservatives or trying to get breast-feeding What should I watch for while using this medicine? Tell your doctor or healthcare professional if your symptoms do not start to get better or if they get worse. This medicine does not prevent heart attack or stroke. In fact, this medicine may increase the chance of a heart attack or stroke. The chance may increase with longer use of this medicine and in people who have heart disease. If you take aspirin to prevent heart attack or stroke, talk with your doctor or health career and technology education teacher. Do not take other medicines that contain aspirin, ibuprofen, or naproxen with this medicine. Side effects such as stomach upset, nausea, or ulcers may be more likely to occur. Many medicines available without a prescription should not be taken with this medicine. This medicine can cause ulcers and bleeding in the stomach and intestines at any time during treatment. Ulcers and bleeding can happen without warning symptoms and can cause . To reduce your risk, do not smoke cigarettes or drink alcohol while you are taking this medicine. You may get drowsy or dizzy. Do not drive, use machinery, or do anything that needs mental alertness until you know how this medicine affects you. Do not stand or sit up quickly, especially if you are an older patient. This reduces the risk of dizzy or fainting spells. This medicine can cause you to bleed more easily. Try to avoid damage to your teeth and gums when you brush or floss your teeth. You have been given the following additional information: Laceration, All Fracture, Toe [Closed] Subungual Hematoma Diphtheria Toxoid Adsorbed, Pertussis Vaccine, Acellular (Adsorbed), Tetanus Toxoid, Adsorbed Suspension for injection Ondansetron Oral disintegrating tablet Ciprofloxacin Hydrochloride Oral tablet Hydrocodone Bitartrate, Acetaminophen Oral tablet Ibuprofen Oral tablet (Electronically signed by Mila Hobbs A.R.N.P. 10/01/2016 17:48)
--- NOTE | 2016-10-01 18:19 | ED MED RECONCILIATION SUMMARY ---
Patient: SPARKLE JOEL Medication Reconciliation Report [facility] VisitID: [id number] [place] [address] 36y, M Registration Date/Time: 10/01/2016 Weight: 74.8 kg Height/Length: 67 in. BMI: 25.9 ALLERGIES: No Known Drug Allergy The patient's Home Medications are listed below: THE FOLLOWING MEDICATIONS NEED TO BE RECONCILED: Had a vicodin at 1545 Hydrocodone-Acetaminophen Oral 5 mg, daily, every 2nd or 3rd day due to back pain- had surgery in march 2016 The source(s) of the original Home Medication information: Not obtained. The following Medications were given to the patient in the Emergency Department: TDAP [IM] IM, administered: 10/01/2016 4:52:00 PM Oxycodone-APAP [PO] PO 1 tab, administered: 10/01/2016 4:52:00 PM The following Medications were prescribed to the patient: Zofran 4 mg: Take 1 orally every six hours as needed for nausea/vomiting. Dispense ten (10). No refills. Substitution is permissible. -- Mila Hobbs, A.R.N.P. Cipro 500 mg: take 1 tab orally every 12 hours for 10 days. Dispense twenty (20). No refills. Substitution is permissible. -- Mila Hobbs, A.R.N.P. [place] 5 mg / 325 mg tablets: take 1 to 2 orally every 6 hours as needed for pain. Dispense fifteen (15). No refills. Substitution is permissible. -- Mila Hobbs, A.R.N.P. Motrin 800 mg tablets: take 1 tablet orally every 8 hours as needed for pain. Dispense thirty (30). No refills. Substitution is permissible. -- Mila Hobbs, A.R.N.P.
--- NOTE | 2016-10-01 18:19 | ED MAR SUMMARY ---
..... Medication Administration Record [facility] [address] [place] [address] Patient: SPARKLE JOEL Visit ID: [id number] 36y, M Weight: 74.8 kg Height/Length: 67 in BMI: 25.9 ALLERGIES: No Known Drug Allergy Given 16:10/01/2016 Ester Ramos RChaddN. Medication Administered: TDAP [IM], Dose: IM. Medication Ordered: Tdap IM 0.5 mL (NOW, per protocol). Given 16:10/01/2016 Ester Ramos, R.N. Medication Administered: OXYCODONE-APAP [PO] (OXYCODONE-ACETAMINOPHEN), Dose: 1 tab 5/325 mg Tablets PO. Medication Ordered: Oxycodone-APAP PO 5/325 mg (HIGH ALERT MEDICATION, NOW).
== END 2016-10-01 17:25 | disposition home or self-care (01) ==
LOC: ED SRH 15:59
DX: S92.424A Nondisplaced fracture of distal phalanx of right great toe, initial encounter for closed fracture (principal); S92.534A Nondisplaced fracture of distal phalanx of right lesser toe(s), initial encounter for closed fracture; S91.114A Laceration without foreign body of right lesser toe(s) without damage to nail, initial encounter; S90.211A Contusion of right great toe with damage to nail, initial encounter; W28.XXXA Contact with powered lawn mower, initial encounter; Y93.H2 Activity, gardening and landscaping; Y92.007 Garden or yard of unspecified non-institutional (private) residence as the place of occurrence of the external cause; Y99.9 Unspecified external cause status; Z23 Encounter for immunization